=== PATIENT | female | born 1965 | race Caucasian/White ===

== ENCOUNTER 2016-06-23 11:02 | Inpatient (IN) | payer MEDICAID ==
[~2016-06-23] VITALS: Ht 162.6 cm; Wt 68.0 kg
[2016-06-23] MEDS ORDERED: SODIUM CHLORIDE 0.9% 1,000 ML IVB ONE (11:45)
[2016-06-23] MEDS ORDERED: PIPERACILLIN-TAZOB 3.375GM 100 ML IV ONE (11:45)
[2016-06-23 13:10] LABS: Basophils # (auto) 0.1 uL; Basophils % (auto) 0.7 % (0.0-2.0); Eosinophils # (auto) 0 uL; Eosinophils % (auto) 0.6 % (0.0-7.0); Hematocrit 36.7 % (36.0-46.0); Hemoglobin 12.2 g/dL (12.2-16.2); Lymphocytes # (auto) 0.9 uL; Lymphocytes % (auto) 11.2 % (10.0-50.0); Mean Corpuscular Hemoglobin 28.2 pg (28.0-32.0); Mean Corpuscular Hgb Conc. 33.3 g/dL (32.0-36.0); Mean Corpuscular Volume 84.8 fL (80.0-100.0); Mean Platelet Volume 8.6 fL (7.4-10.4); Monocytes # (auto) 0.3 uL; Neutrophils # (auto) 6.9 uL; Neutrophils % (auto) 83.5 % (37.0-80.0); Platelet Count (auto) 226 10^3/uL (140-450); Red Cell Distribution Width 14.8 % (11.6-16.0); White Blood Cell 8.2 10^3/uL (4.4-10.8)
[2016-06-23] MEDS ORDERED: ONDANSETRON HCL 4 MG/2 ML VIAL IV ONE (13:15)
[2016-06-23 13:34] LABS: INR 1.03 (0.9-1.15); Partial Thromboplastin Time 30.3 sec (22.64-33.71); Prothrombin Time 10.6 sec (9.37-12.3)
[2016-06-23 14:00] LABS: Albumin 4.1 g/dL (3.4-5.0); Alkaline Phosphatase 98 U/L (45-117); Anion Gap 14 (5-15); Aspartate Aminotransferase 104 U/L (15-37); BUN/Creatinine Ratio 26.4; Bilirubin, Total 0.5 mg/dL (0.2-1.0); Blood Urea Nitrogen 14 mg/dL (7-18); Calcium 8.8 mg/dL (8.5-10.1); Carbon Dioxide 27 mmol/L (21-32); Chloride 103 mmol/L (98-107); GFR African American 156 mL/min; GFR Non-African American 129 mL/min; Glucose 109 mg/dL (74-106); Potassium 3.9 mmol/L (3.5-5.1); Sodium 144 mmol/L (136-145)
[2016-06-23 14:11] LABS: Urine Bilirubin Negative (Negative); Urine Blood Negative /uL (Negative); Urine Color Yellow (Yellow); Urine Glucose Normal (Normal); Urine Ketone TRACE (Negative); Urine Nitrite Negative (Negative); Urine RBC 1 /hpf (0 - 4); Urine Urobilinogen Normal (Negative); Urine pH 5.5 (5.0-8.0)
[2016-06-23] MEDS ORDERED: ONDANSETRON HCL 4 MG/2 ML VIAL IV PRN (15:30)
[2016-06-23] MEDS ORDERED: MORPHINE SULF INJ 2 MG/ML SYRINGE 1ML IV PRN ×2 (15:30)
[2016-06-23] MEDS ORDERED: NITROGLYCERIN 0.4 MG SL TAB SL PRN (15:30)
[2016-06-23] MEDS: SODIUM CHLORIDE 0.9% 1,000 ML IV SCH (16:08)
[2016-06-23] MEDS: HYDROcodone-ACET 5/325MG TAB PO PRN (17:04)
[2016-06-23] MEDS ORDERED: ERGO1CAP6 PO (17:15)
[2016-06-23] MEDS ORDERED: CLON05T PO (17:15)
[2016-06-23] MEDS ORDERED: SUMA100T2 PO (17:15)
[2016-06-23] MEDS ORDERED: TIZA4CAP5 PO (17:15)
[2016-06-23] MEDS ORDERED: DIAZ2TAB PO (17:18)
[2016-06-23] MEDS ORDERED: NALT380I PO (17:18)
[2016-06-23] MEDS ORDERED: TIZA4CAP7 PO (17:18)
[2016-06-23] MEDS ORDERED: TRAM50TA2 PO (17:18)
[2016-06-23] MEDS ORDERED: MIRT30TA PO (17:19)
[2016-06-23] MEDS ORDERED: NOR5T PO (17:19)
[2016-06-23 20:20] VITALS: BP 136/75
[2016-06-23 22:00] VITALS: BP 136/75
[2016-06-24] VITALS (7 sets, daily range): BP systolic 104–135; BP diastolic 61–88
[2016-06-24] MEDS: SODIUM CHLORIDE 0.9% 1,000 ML IV SCH ×3 (02:58→23:26)
[2016-06-24 06:42] LABS: Basophils # (auto) 0 uL; Basophils % (auto) 0.2 % (0.0-2.0); Eosinophils # (auto) 0.1 uL; Eosinophils % (auto) 0.9 % (0.0-7.0); Hematocrit 32.7 % (36.0-46.0); Hemoglobin 11.2 g/dL (12.2-16.2); Lymphocytes # (auto) 2.2 uL; Lymphocytes % (auto) 27.8 % (10.0-50.0); Mean Corpuscular Hemoglobin 28.6 pg (28.0-32.0); Mean Corpuscular Hgb Conc. 34.3 g/dL (32.0-36.0); Mean Corpuscular Volume 83.4 fL (80.0-100.0); Mean Platelet Volume 8.5 fL (7.4-10.4); Monocytes # (auto) 0.5 uL; Monocytes % (auto) 5.8 % (0.0-12.0); Neutrophils # (auto) 5.2 uL; Neutrophils % (auto) 65.3 % (37.0-80.0); Platelet Count (auto) 237 10^3/uL (140-450); Red Cell Distribution Width 14.9 % (11.6-16.0); White Blood Cell 7.9 10^3/uL (4.4-10.8)
[2016-06-24 07:29] LABS: Albumin 3.2 g/dL (3.4-5.0); Bilirubin, Total 0.4 mg/dL (0.2-1.0); Calcium 7.6 mg/dL (8.5-10.1); Total Protein 6.2 g/dL (6.4-8.2)
[2016-06-24 07:34] LABS: Potassium 2.7 mmol/L (3.5-5.1)
[2016-06-24] MEDS ORDERED: POTASSIUM CHL 20 Meq TABLET PO ONE (08:30)
[2016-06-24] MEDS ORDERED: POTASSIUM CHL 20MEQ/100ML 100 ML IV ONE (08:30)
[2016-06-24] MEDS ORDERED: cefTRIAXone 1GM/50ML D5W 50 ML IV SCH ×2 (09:00→12:00)
[2016-06-24] MEDS ORDERED: PANTOPRAZOLE SODIUM 40 MG/10 ML VIAL IV SCH (10:00)
[2016-06-24] MEDS: HYDROcodone-ACET 5/325MG TAB PO PRN (14:52)
[2016-06-24] MEDS: TOLTERODINE TARTRATE 1 MG TAB PO SCH (22:23)
[2016-06-25 05:30] VITALS: BP 133/84
[2016-06-25 06:05] LABS: BUN/Creatinine Ratio 16.1; Calcium 8.1 mg/dL (8.5-10.1); Magnesium 2.1 mg/dL (1.6-2.6); Potassium 3.5 mmol/L (3.5-5.1)
[2016-06-25 08:00] VITALS: BP 148/74
[2016-06-25] MEDS: HYDROcodone-ACET 5/325MG TAB PO PRN (08:16)
[2016-06-25 09:00] VITALS: BP 148/74
[2016-06-25] MEDS: TOLTERODINE TARTRATE 1 MG TAB PO SCH (09:32)
[2016-06-25] MEDS ORDERED: PANTOPRAZOLE 40 MG TAB PO SCH (10:00)
[2016-06-25 10:37] VITALS: BP 148/74
== END 2016-06-25 11:38 | disposition home or self-care (01) | DRG 812 ==
LOC: EDBD 11:02 → ER 11:03 → TELE 11:04 → TELE-CENTR 20:37
PROVIDERS: ADMIT Internal Medicine; ATTEND Internal Medicine
DX: T40.601A Poisoning by unspecified narcotics, accidental (unintentional), initial encounter (principal); G92 Toxic encephalopathy; T68.XXXA Hypothermia, initial encounter; G35 Multiple sclerosis; J98.11 Atelectasis; E66.9 Obesity, unspecified; G89.29 Other chronic pain; E87.6 Hypokalemia; Z82.49 Family history of ischemic heart disease and other diseases of the circulatory system; Y92.091 Bathroom in other non-institutional residence as the place of occurrence of the external cause; Z90.710 Acquired absence of both cervix and uterus; Z68.25 Body mass index [BMI] 25.0-25.9, adult
CPT/HCPCS: 36415; 51702; 70450; 71010; 80048; 80053; 80320; 81001; 83605; 83735; 84132; 84484; 85025; 85610; 85730; 87040; 96361; 96365; 96375; 97001; C9113; G0434; J2405; J2543; J3480

== ENCOUNTER 2022-01-04 20:59 | Inpatient (IN) | payer MEDICAID, OTHER ==
[~2022-01-04] VITALS: Ht 160 cm; Wt 86.5 kg
[~2022-01-04 20:59] MED LIST: CLON0.5T3 PO; ERGO1CAP6 PO; HYDR-4833 PO; MIRT-66 PO; NALT380I PO; SUMA100T2 PO; TIZA4CAP PO; TIZA4CAP7 PO; TRAM50TA2 PO
[2022-01-04 23:22] LABS: Basophils # (auto) 0.1 10 ^3/uL (0-0.2); Basophils % (auto) 0.5 % (0.0-2.0); Eosinophils # (auto) 0 10 ^3/uL (0-0.8); Hematocrit 35.8 % (36.0-46.0); Hemoglobin 12.1 g/dL (12.2-16.2); Lymphocytes # (auto) 0.8 10 ^3/uL (0.4-5.4); Mean Corpuscular Hemoglobin 29.4 pg (28.0-32.0); Mean Corpuscular Hgb Conc. 33.6 g/dL (32.0-36.0); Mean Corpuscular Volume 87.4 fL (80.0-100.0); Monocytes # (auto) 0.9 10 ^3/uL (0-1.3); Monocytes % (auto) 8.4 % (0.0-12.0); Neutrophils # (auto) 9.5 10 ^3/uL (1.6-8.6); Neutrophils % (auto) 84.1 % (37.0-80.0); Red Cell Distribution Width 13.8 % (11.8-14.3); White Blood Cell 11.3 10^3/uL (4.4-10.8)
[2022-01-04 23:40] LABS: Albumin 3.1 g/dL (3.4-5.0); Calcium 7.8 mg/dL (8.5-10.1)
[2022-01-04 23:46] LABS: BUN/Creatinine Ratio 17.2
[2022-01-05] MEDS ORDERED: SODIUM CHLORIDE 0.9% 1,000 ML IV ONE (04:30)
[2022-01-05] MEDS ORDERED: POTASSIUM CHL 20MEQ/100ML 100 ML IV ONE (04:30)
[2022-01-05] MEDS ORDERED: DexAMETHasone SOD PHOS 10MG/1ML VIAL INJ IV ONE (04:30)
[2022-01-05] MEDS ORDERED: DOCUSATE SOD 100 MG CAP PO PRN (05:15)
[2022-01-05] MEDS ORDERED: ACETAMINOPHEN 325 MG TAB PO PRN (05:15)
[2022-01-05] MEDS ORDERED: ONDANSETRON HCL 4 MG/2 ML VIAL IV PRN (05:15)
[2022-01-05] MEDS ORDERED: NITROGLYCERIN 0.4 MG SL TAB SL PRN (05:45)
[2022-01-05] MEDS ORDERED: MORPHINE SULFATE INJ 2 MG/ml SYRG IV PRN (05:45)
[2022-01-05 06:23] LABS: Basophils # (auto) 0 10 ^3/uL (0-0.2); Basophils % (auto) 0.2 % (0.0-2.0); Eosinophils # (auto) 0 10 ^3/uL (0-0.8); Hematocrit 32.7 % (36.0-46.0); Hemoglobin 11.2 g/dL (12.2-16.2); Lymphocytes # (auto) 0.7 10 ^3/uL (0.4-5.4); Lymphocytes % (auto) 5.2 % (10.0-50.0); Mean Corpuscular Hemoglobin 29.8 pg (28.0-32.0); Mean Corpuscular Hgb Conc. 34.3 g/dL (32.0-36.0); Mean Corpuscular Volume 86.7 fL (80.0-100.0); Monocytes # (auto) 1.1 10 ^3/uL (0-1.3); Monocytes % (auto) 8.8 % (0.0-12.0); Neutrophils # (auto) 10.9 10 ^3/uL (1.6-8.6); Neutrophils % (auto) 85.8 % (37.0-80.0); Red Blood Cells 3.77 10^6/uL (4.0-5.20); Red Cell Distribution Width 14.1 % (11.8-14.3); White Blood Cell 12.7 10^3/uL (4.4-10.8)
[2022-01-05 06:41] LABS: Albumin 2.8 g/dL (3.4-5.0)
[2022-01-05] MEDS: SODIUM CHLORIDE 0.9% 1,000 ML IV SCH ×2 (06:45→22:01)
[2022-01-05 06:55] LABS: Urine Bacteria MANY /hpf (None Seen); Urine Blood 1+ /uL (Negative); Urine Specific Gravity 1.015 (1.001-1.035); Urine WBC 581 /hpf (0 - 5); Urine WBC Clumps PRESENT /hpf (None Seen)
[2022-01-05 07:35] LABS: Bilirubin, Total 1.1 mg/dL (0.2-1.0); Total Protein 6.2 g/dL (6.4-8.2)
[2022-01-05 07:37] LABS: Potassium 2.9 mmol/L (3.5-5.1)
[2022-01-05] MEDS: DexAMETHasone SOD PHOS 10MG/1ML VIAL INJ IV SCH ×2 (10:15→22:02)
[2022-01-05] MEDS: FAMOTIDINE (10MG/ML) 2ML VL IV SCH (10:15)
[2022-01-05] MEDS ORDERED: POTASSIUM CHL 20 Meq TABLET PO ONE ×2 (13:15→18:15)
[2022-01-05] MEDS: MAGNESIUM SULFATE 1GM/100ML 100 ML IV SCH ×2 (13:37→14:34)
[2022-01-05 16:40] VITALS: BP 109/60
[2022-01-05 17:37] LABS: Calcium 8.4 mg/dL (8.5-10.1); Potassium 3.7 mmol/L (3.5-5.1)
[2022-01-05 17:40] LABS: BUN/Creatinine Ratio 21.9
[2022-01-05] MEDS ORDERED: ROPI1TAB4 PO (18:11)
[2022-01-05] MEDS ORDERED: GABA300C10 PO (18:11)
[2022-01-05] MEDS ORDERED: TIZA4TAB7 PO (18:11)
[2022-01-05] MEDS ORDERED: BACL20TA PO (18:11)
[2022-01-05] MEDS: PIPERACILLIN-TAZOB 3.375GM 100 ML IV SCH (18:41)
[2022-01-05] MEDS: HYDROcodone-ACET 5/325MG TAB PO PRN (18:42)
[2022-01-05 20:00] VITALS: BP 125/61
[2022-01-05 22:00] VITALS: BP 125/61
[2022-01-05] MEDS: BACLOFEN 10 MG TAB PO SCH (22:02)
[2022-01-05] MEDS ORDERED: LORazepam 2MG/ML-1ML VIAL IV PRN (23:15)
[2022-01-06] MEDS: TEMAZEPAM 15 MG CAP PO PRN ×2 (01:11→20:48)
[2022-01-06] MEDS: PIPERACILLIN-TAZOB 3.375GM 100 ML IV SCH ×5 (01:29→23:15)
[2022-01-06 05:00] VITALS: BP 118/59
[2022-01-06] MEDS: BACLOFEN 10 MG TAB PO SCH ×3 (05:28→20:48)
[2022-01-06 06:20] LABS: Basophils # (auto) 0 10 ^3/uL (0-0.2); Basophils % (auto) 0.1 % (0.0-2.0); Eosinophils # (auto) 0 10 ^3/uL (0-0.8); Hematocrit 36.6 % (36.0-46.0); Hemoglobin 12.1 g/dL (12.2-16.2); Lymphocytes # (auto) 0.8 10 ^3/uL (0.4-5.4); Lymphocytes % (auto) 4.1 % (10.0-50.0); Mean Corpuscular Hemoglobin 29.1 pg (28.0-32.0); Mean Corpuscular Hgb Conc. 33.1 g/dL (32.0-36.0); Monocytes # (auto) 0.6 10 ^3/uL (0-1.3); Monocytes % (auto) 3.2 % (0.0-12.0); Neutrophils # (auto) 16.9 10 ^3/uL (1.6-8.6); Neutrophils % (auto) 92.6 % (37.0-80.0); Red Blood Cells 4.16 10^6/uL (4.0-5.20); Red Cell Distribution Width 14.1 % (11.8-14.3); White Blood Cell 18.2 10^3/uL (4.4-10.8)
[2022-01-06 06:38] LABS: Potassium 4.9 mmol/L (3.5-5.1)
[2022-01-06 06:44] LABS: Albumin 2.9 g/dL (3.4-5.0); BUN/Creatinine Ratio 30.2; Bilirubin, Total 0.8 mg/dL (0.2-1.0); Calcium 8.7 mg/dL (8.5-10.1); Magnesium 2.8 mg/dL (1.6-2.6); Total Protein 6.3 g/dL (6.4-8.2)
[2022-01-06 08:00] VITALS: BP 130/82
[2022-01-06 08:48] VITALS: BP 130/82
[2022-01-06] MEDS ORDERED: methylPREDNISolone SOD SUCC 40 MG/ML VL IV SCH (10:00)
[2022-01-06] MEDS: FAMOTIDINE (10MG/ML) 2ML VL IV SCH (10:55)
[2022-01-06] MEDS: GABAPENTIN 300 MG CAP PO SCH (10:56)
[2022-01-06] MEDS ORDERED: diazePAM 5 MG TAB PO ONE (11:15)
[2022-01-06] MEDS ORDERED: GADOTERATE MEG 10 MMOL/20ml INJ (0.5MMOL/ml) IV ONE (11:44)
[2022-01-06 13:00] VITALS: BP 129/61
[2022-01-06] MEDS: SODIUM CHLORIDE 0.9% 1,000 ML IV SCH (14:35)
[2022-01-06 17:00] VITALS: BP 110/63
[2022-01-06 22:00] VITALS: BP 99/54
[2022-01-07 05:00] VITALS: BP 106/62
[2022-01-07] MEDS: BACLOFEN 10 MG TAB PO SCH ×2 (05:07→14:11)
[2022-01-07] MEDS: PIPERACILLIN-TAZOB 3.375GM 100 ML IV SCH ×2 (05:07→12:42)
[2022-01-07] MEDS: GABAPENTIN 300 MG CAP PO SCH (10:32)
[2022-01-07] MEDS: HYDROcodone-ACET 5/325MG TAB PO PRN (10:32)
[2022-01-07] MEDS: FAMOTIDINE (10MG/ML) 2ML VL IV SCH (10:33)
[2022-01-07 13:00] VITALS: BP 114/65
[2022-01-07] MEDS ORDERED: methylPREDNISolone SOD SUCC 1,000 MG in SODIUM CHL 0.9% 250 ML IV SCH (13:00)
[2022-01-07] MEDS ORDERED: CIPR500T4 PO (16:32)
[2022-01-07 16:47] VITALS: BP 115/64
[2022-01-07 17:15] VITALS: BP 115/64
== END 2022-01-07 19:05 | disposition home or self-care (01) | DRG 59 ==
LOC: ER 20:59 → TELE 01-05 05:38 → TELE-WESTW 01-05 16:10
PROVIDERS: ADMIT Nurse Practitioner Family; ATTEND Hospitalist
DX: G35 Multiple sclerosis (principal); E46 Unspecified protein-calorie malnutrition; N39.0 Urinary tract infection, site not specified; E87.6 Hypokalemia; E88.09 Other disorders of plasma-protein metabolism, not elsewhere classified; E86.0 Dehydration; F17.200 Nicotine dependence, unspecified, uncomplicated; Z20.822 Contact with and (suspected) exposure to COVID-19; R73.9 Hyperglycemia, unspecified; D72.829 Elevated white blood cell count, unspecified; Z82.3 Family history of stroke; Z90.710 Acquired absence of both cervix and uterus; Z68.33 Body mass index [BMI] 33.0-33.9, adult
CPT/HCPCS: 36415; 70553; 71046; 72142; 80048; 80053; 81001; 83735; 83880; 84484; 85025; 87426; 93005; 96365; 96366; 96367; 96375; 97163; G0378; J1100; J2405; J2543; J3480; J3490

== ENCOUNTER 2023-03-16 10:38 | Inpatient (IN) | payer OTHER ==
[~2023-03-16] VITALS: Ht 170.2 cm; Wt 71.7 kg
[~2023-03-16 10:38] MED LIST changes: +BACL20TA PO; +CIPR500T4 PO; -ERGO1CAP6 PO; +GABA-1250 PO; -MIRT-66 PO; +MIRT-94 PO; +ROPI1TAB4 PO; +TIZA-142 PO; -TIZA4CAP PO; -TIZA4CAP7 PO
[2023-03-16 12:12] VITALS: PULSE 82; RESP 14; O2SAT 97
[2023-03-16 12:29] LABS: Basophils # (auto) 0 10 ^3/uL (0-0.2); Basophils % (auto) 0.3 % (0.0-2.0); Eosinophils # (auto) 0 10 ^3/uL (0-0.8); Eosinophils % (auto) 0.2 % (0.0-7.0); Hematocrit 44.9 % (36.0-46.0); Hemoglobin 14.6 g/dL (12.2-16.2); Lymphocytes # (auto) 1.2 10 ^3/uL (0.4-5.4); Lymphocytes % (auto) 9.3 % (10.0-50.0); Mean Corpuscular Hemoglobin 29.7 pg (28.0-32.0); Mean Corpuscular Hgb Conc. 32.6 g/dL (32.0-36.0); Mean Corpuscular Volume 90.9 fL (80.0-100.0); Monocytes # (auto) 0.7 10 ^3/uL (0-1.3); Neutrophils # (auto) 11.3 10 ^3/uL (1.6-8.6); Neutrophils % (auto) 85.2 % (37.0-80.0); Red Blood Cells 4.93 10^6/uL (4.0-5.20); Red Cell Distribution Width 14.4 % (11.8-14.3); White Blood Cell 13.3 10^3/uL (4.4-10.8)
[2023-03-16 12:46] LABS: Alanine Aminotransferase 14 U/L (7-40); Alkaline Phosphatase 82 U/L (46-116); Anion Gap 7 (5-15); BUN/Creatinine Ratio 7.4 (10.0-20.0); Blood Alcohol 3.3 mg/dL (<10); Blood Urea Nitrogen 8 mg/dL (9-23); Calcium 9.5 mg/dL (8.7-10.4); Carbon Dioxide 25 mmol/L (20-30); Chloride 107 mmol/L (98-107); Glucose 92 mg/dL (74-106); Magnesium 2.3 mg/dL (1.6-2.6); Potassium 3.7 mmol/L (3.5-5.1); Sodium 139 mmol/L (136-145)
[2023-03-16 12:47] LABS: Albumin 4.6 g/dL (3.2-4.8); Aspartate Aminotransferase 24 U/L (13-40)
[2023-03-16 12:48] LABS: Bilirubin, Total 0.8 mg/dL (0.2-1.0)
[2023-03-16 14:50] LABS: Rapid Influenza A Negative (Negative); Rapid Influenza B Negative (Negative)
[2023-03-16 14:52] LABS: COVID19 ANTIGEN SOFIA FIA NEGATIVE (NEGATIVE)
[2023-03-16 14:59] LABS: Urine Bacteria FEW /hpf (None Seen); Urine Blood Negative /uL (Negative); Urine Clarity Clear (Clear); Urine Color Colorless (Yellow); Urine Protein, UAD Negative (Negative); Urine Specific Gravity 1.006 (1.001-1.035); Urine Urobilinogen Normal (Negative); Urine WBC 24 /hpf (0 - 5); Urine pH 7.5 (5.0-8.0)
[2023-03-16] MEDS ORDERED: cefTRIAXone 1GM/50ML D5W 50 ML IV ONE (15:30)
[2023-03-16 19:36] LABS: Amphetamine Screen, Urine Neg (NEGATIVE); Barbiturate Scree,Urine Neg (NEGATIVE); Benzodiazephine Screen, Urine Neg (NEGATIVE); Cannabinoid Screen, Urine Pos (NEGATIVE); Cocaine Screen, Urine Neg (NEGATIVE); Opiate Scree,Urine Neg (NEGATIVE); Phencyclidine Screen, Urine Neg (NEGATIVE)
[2023-03-16 19:45] VITALS: RESP 12; O2SAT 100
[2023-03-16 19:51] LABS: Acetaminophen < 2.0 UG/ML (10.0-20.0)
[2023-03-16 19:54] LABS: Salicylate < 3.0 mg/dL (2.8-20.0)
[2023-03-16] MEDS ORDERED: ACETAMINOPHEN 325 MG TAB PO PRN (20:00)
[2023-03-16] MEDS ORDERED: NITROGLYCERIN 0.4 MG SL TAB SL PRN (20:00)
[2023-03-16] MEDS ORDERED: HYDROcodone-ACET 5/325MG TAB PO PRN (20:00)
[2023-03-16] MEDS ORDERED: MORPHINE SULFATE INJ 2 MG/ml SYRG IV PRN (20:00)
[2023-03-16] MEDS: SODIUM CHLORIDE 0.9% 1,000 ML IV SCH (21:12)
[2023-03-16] MEDS ORDERED: NALOXONE HCL 0.4 MG/ML VIAL IV ONE (21:30)
[2023-03-16] MEDS: hydrALAZINE HCL 20 MG/ML VL IV PRN (22:40)
[2023-03-17] MEDS: hydrALAZINE HCL 20 MG/ML VL IV PRN ×2 (03:24→23:56)
[2023-03-17 06:21] LABS: Basophils # (auto) 0.1 10 ^3/uL (0-0.2); Basophils % (auto) 0.6 % (0.0-2.0); Eosinophils # (auto) 0 10 ^3/uL (0-0.8); Hematocrit 43.6 % (36.0-46.0); Hemoglobin 14.8 g/dL (12.2-16.2); Mean Corpuscular Hemoglobin 29.9 pg (28.0-32.0); Mean Corpuscular Hgb Conc. 33.9 g/dL (32.0-36.0); Mean Corpuscular Volume 88.3 fL (80.0-100.0); Monocytes # (auto) 0.4 10 ^3/uL (0-1.3); Monocytes % (auto) 4.4 % (0.0-12.0); Neutrophils # (auto) 8.3 10 ^3/uL (1.6-8.6); Nucleated Red Blood Cells % 0.1 %; Red Blood Cells 4.94 10^6/uL (4.0-5.20); Red Cell Distribution Width 14.1 % (11.8-14.3); White Blood Cell 9.8 10^3/uL (4.4-10.8)
[2023-03-17 06:38] LABS: Alanine Aminotransferase 14 U/L (7-40); Albumin 4.5 g/dL (3.2-4.8); Alkaline Phosphatase 82 U/L (46-116); Anion Gap 12 (5-15); Aspartate Aminotransferase 25 U/L (13-40); BUN/Creatinine Ratio 15.5 (10.0-20.0); Blood Urea Nitrogen 11 mg/dL (9-23); Calcium 9.5 mg/dL (8.5-10.1); Carbon Dioxide 20 mmol/L (20-30); Chloride 108 mmol/L (98-107); Glucose 95 mg/dL (74-106); Potassium 3.5 mmol/L (3.5-5.1); Sodium 140 mmol/L (136-145)
[2023-03-17 06:39] LABS: Bilirubin, Total 0.6 mg/dL (0.2-1.0); Total Protein 6.8 g/dL (5.7-8.2)
[2023-03-17 08:00] VITALS: PULSE 88; RESP 12; O2SAT 100
[2023-03-17] MEDS: ENOXAPARIN SOD 30 MG/0.3 ML SYRINGE SC SCH (10:00)
[2023-03-17] MEDS: SODIUM CHLORIDE 0.9% 1,000 ML IV SCH (14:44)
[2023-03-17] MEDS ORDERED: methylPREDNISolone SOD SUCC 500 MG in SODIUM CHL 0.9% 100 ML IV ONE (15:15)
[2023-03-17] MEDS ORDERED: LORazepam 2MG/ML-1ML VIAL IV PRN (19:15)
[2023-03-17 20:15] VITALS: PULSE 97; RESP 16; O2SAT 97
[2023-03-18] VITALS (10 sets, daily range): BP systolic 141–166; BP diastolic 64–88; PULSE 102–120; RESP 18–20; TEMP 97.5–98.4; O2SAT 91–96
[2023-03-18] MEDS: SODIUM CHLORIDE 0.9% 1,000 ML IV SCH ×2 (05:20→22:00)
[2023-03-18] MEDS: hydrALAZINE HCL 20 MG/ML VL IV PRN ×2 (05:32→22:37)
[2023-03-18 06:54] LABS: Basophils # (auto) 0 10 ^3/uL (0-0.2); Basophils % (auto) 0.1 % (0.0-2.0); Eosinophils # (auto) 0 10 ^3/uL (0-0.8); Hematocrit 44.4 % (36.0-46.0); Lymphocytes # (auto) 0.8 10 ^3/uL (0.4-5.4); Lymphocytes % (auto) 7.2 % (10.0-50.0); Mean Corpuscular Hgb Conc. 33.7 g/dL (32.0-36.0); Mean Corpuscular Volume 89.2 fL (80.0-100.0); Monocytes # (auto) 0 10 ^3/uL (0-1.3); Monocytes % (auto) 0.4 % (0.0-12.0); Neutrophils # (auto) 9.9 10 ^3/uL (1.6-8.6); Neutrophils % (auto) 92.3 % (37.0-80.0); Red Blood Cells 4.98 10^6/uL (4.0-5.20); Red Cell Distribution Width 13.9 % (11.8-14.3); White Blood Cell 10.7 10^3/uL (4.4-10.8)
[2023-03-18 07:11] LABS: Alanine Aminotransferase 18 U/L (7-40); Albumin 4.6 g/dL (3.2-4.8); Alkaline Phosphatase 80 U/L (46-116); Anion Gap 15 (5-15); Aspartate Aminotransferase 23 U/L (13-40); BUN/Creatinine Ratio 20.6 (10.0-20.0); Blood Urea Nitrogen 14 mg/dL (9-23); Calcium 9.6 mg/dL (8.5-10.1); Carbon Dioxide 17 mmol/L (20-30); Chloride 109 mmol/L (98-107); Glucose 132 mg/dL (74-106); Potassium 3.3 mmol/L (3.5-5.1); Sodium 141 mmol/L (136-145)
[2023-03-18 07:12] LABS: Bilirubin, Total 0.7 mg/dL (0.2-1.0); Total Protein 6.9 g/dL (5.7-8.2)
[2023-03-18] MEDS ORDERED: POTASSIUM CHL 10 Meq TABLET PO ONE (08:30)
[2023-03-18] MEDS ORDERED: cefTRIAXone 1GM/50ML D5W 50 ML IV SCH (09:00)
[2023-03-18] MEDS: ENOXAPARIN SOD 30 MG/0.3 ML SYRINGE SC SCH (09:14)
[2023-03-18] MEDS ORDERED: GADOTERATE MEG 10 MMOL/20ml INJ (0.5MMOL/ml) IV ONE (11:22)
[2023-03-18] MEDS: PIPERACILLIN-TAZOB 3.375GM 100 ML IV SCH (22:24)
[2023-03-19] MEDS: PIPERACILLIN-TAZOB 3.375GM 100 ML IV SCH ×2 (04:05→09:44)
[2023-03-19] MEDS: SODIUM CHLORIDE 0.9% 1,000 ML IV SCH (04:31)
[2023-03-19 04:55] VITALS: BP 139/94; PULSE 122; RESP 18; TEMP 98.4; O2SAT 96
[2023-03-19 05:13] LABS: Basophils # (auto) 0 10 ^3/uL (0-0.2); Basophils % (auto) 0.1 % (0.0-2.0); Eosinophils # (auto) 0 10 ^3/uL (0-0.8); Hematocrit 41.6 % (36.0-46.0); Hemoglobin 13.9 g/dL (12.2-16.2); Lymphocytes # (auto) 1.1 10 ^3/uL (0.4-5.4); Lymphocytes % (auto) 9.1 % (10.0-50.0); Mean Corpuscular Hemoglobin 29.8 pg (28.0-32.0); Mean Corpuscular Hgb Conc. 33.3 g/dL (32.0-36.0); Mean Corpuscular Volume 89.5 fL (80.0-100.0); Monocytes # (auto) 0.8 10 ^3/uL (0-1.3); Monocytes % (auto) 6.8 % (0.0-12.0); Neutrophils # (auto) 10.3 10 ^3/uL (1.6-8.6); Red Blood Cells 4.64 10^6/uL (4.0-5.20); Red Cell Distribution Width 13.9 % (11.8-14.3); White Blood Cell 12.2 10^3/uL (4.4-10.8)
[2023-03-19 05:25] LABS: Albumin 4.4 g/dL (3.2-4.8); Alkaline Phosphatase 73 U/L (46-116); Anion Gap 10 (5-15); Aspartate Aminotransferase 23 U/L (13-40); BUN/Creatinine Ratio 24.3 (10.0-20.0); Bilirubin, Total 1.1 mg/dL (0.2-1.0); Blood Urea Nitrogen 18 mg/dL (9-23); Calcium 8.9 mg/dL (8.7-10.4); Carbon Dioxide 20 mmol/L (20-30); Chloride 111 mmol/L (98-107); Glucose 111 mg/dL (74-106); Potassium 3.2 mmol/L (3.5-5.1); Sodium 141 mmol/L (136-145); Total Protein 6.8 g/dL (5.7-8.2)
[2023-03-19 05:37] LABS: Alanine Aminotransferase 16 U/L (7-40)
[2023-03-19] MEDS ORDERED: POTASSIUM CHL 20 Meq TABLET PO ONE (07:00)
[2023-03-19 08:00] VITALS: PULSE 110; PULSE 117; RESP 16; O2SAT 92
[2023-03-19 08:50] VITALS: BP 142/75; PULSE 114; RESP 19; TEMP 98; O2SAT 96
[2023-03-19] MEDS: ENOXAPARIN SOD 30 MG/0.3 ML SYRINGE SC SCH (09:43)
[2023-03-19 10:51] VITALS: BP 166/88; TEMP 36.7
== END 2023-03-19 11:43 | disposition home or self-care (01) | DRG 71 ==
LOC: EDBD 10:38 → ER 10:38 → TELE 20:05 → TELE-WESTW 03-17 23:56 → OBSVTOIN 03-18 09:54
PROVIDERS: ADMIT Internal Medicine; ATTEND Student in an Organized Health Care Education/Training Program
DX: G93.41 Metabolic encephalopathy (principal); N39.0 Urinary tract infection, site not specified; G35 Multiple sclerosis; Z20.822 Contact with and (suspected) exposure to COVID-19; G96.9 Disorder of central nervous system, unspecified; F17.210 Nicotine dependence, cigarettes, uncomplicated; Z82.3 Family history of stroke; Z86.73 Personal history of transient ischemic attack (TIA), and cerebral infarction without residual deficits; Z90.710 Acquired absence of both cervix and uterus
CPT/HCPCS: 36415; 70450; 70551; 71045; 80053; 80307; 80320; 80329; 81001; 82962; 83605; 83735; 85025; 87040; 87426; 87804; 93005; 97110; 97116; 97163; 97530; G0378; J2543

== ENCOUNTER 2024-08-12 11:34 | Emergency (ER) | payer OTHER ==
[~2024-08-12] VITALS: Ht 160 cm; Wt 75.9 kg
[~2024-08-12 11:34] MED LIST changes: -BACL20TA PO; -CIPR500T4 PO; -ROPI1TAB4 PO; +ROPI1TAB78 PO; -TIZA-142 PO; -TRAM50TA2 PO
--- NOTE | 2024-08-12 12:21 | ED.PDOC ---
History of Present Illness HPI Comments 58-year-old female with PMHx MS presents with a chief complaint of generalized weakness and neck pain x "months". Patient reports that she has not had MS treatment since February 2024 due to insurance issues. Patient mentions that she has now not been able to walk at home due to weakness in her legs and cannot hold her head up anymore. Patient reports that her C4 and C5 are dissolving, which is associated with chronic neck pain. She denies any fever, difficulty breathing, difficulty swallowing, vision changes or other symptoms. No other symptoms or modifying factors present at this time. Chief Complaint: General Weakness Time Seen by MD: 12:05 Primary Care Provider: UNKNOWN Reviewed Notes: Medications, Allergies Allergies: Coded Allergies: NO KNOWN ALLERGIES (Unverified , 03/19/16) Home Meds Active Scripts Prednisone (Prednisone) 10 Mg Tab, 1-6 MG PO DAILY for 12 Days, #39 TAB 6 tabs po daily x 3 days, then 4 tabs daily x 3 days, then 2 tabs daily x 3 days, then 1 tab daily x 3 days Prov:VAMSHI ELIZONDO MD 08/12/24 Reported Medications Gabapentin (Gabapentin) 300 Mg Cap, 300 MG PO DAILY 01/05/22 Ropinirole Hydrochloride (Ropinirole Hcl) 1 Mg Tab, 12 MG PO QPM 01/05/22 Hydrocodone-Acetaminophen ([place] 5/325MG) 1 Tab Tb, 1 TAB PO TID, #90 TAB 06/23/16 Mirtazapine (REMERON) 30 Mg Tab, 45 MG PO HS, TAB 06/23/16 Naltrexone (Vivitrol) 380 Mg Inj, 3 MG PO DAILY, INJ 06/23/16 Sumatriptan Succinate (Imitrex) 100 Mg Tab, 100 MG PO DAILY, TAB 06/23/16 Clonazepam (KlonoPIN TABLET) 0.5 Mg Tb, 2 MG PO TID 06/23/16 Information Source: Patient Mode of Arrival: Wheelchair Severity: Moderate Timing: Months Duration: Since onset Prehospital treatment: None Past Medical History Past Medical History (Other): MS Surgical History: Hysterectomy [employer] History: No Pertinent [employer] History Family History Family History: No family hx of HTN Social History Smoker: Cigarettes Alcohol: Rarely Drugs: Marijuana Lives In: Home Constitutional: reports: weakness; denies: chills, diaphoresis, fatigue, fever, malaise, sweats, others EENTM: denies: blurred vision, double vision, ear bleeding, ear discharge, ear drainage, ear pain, ear ringing, eye pain, eye redness, hearing loss, mouth pain, mouth swelling, nasal discharge, nose bleeding, nose congestion, nose pain, photophobia, tearing, throat pain, throat swelling, voice changes, others Respiratory: denies: cough, hemoptysis, orthopnea, SOB at rest, shortness of breath, SOB with excertion, stridor, wheezing, others Cardiovascular: denies: chest pain, dizzy spells, diaphoresis, Dyspnea on exertion, edema, irregular heart beat, left arm pain, lightheadedness, palpitations, PND, syncope, others Gastrointestinal: denies: abdomen distended, abdominal pain, blood streaked bowels, constipated, diarrhea, dysphagia, difficulty swallowing, hematemesis, melena, nausea, poor appetite, poor fluid intake, rectal bleeding, rectal pain, vomiting, others Genitourinary: denies: abnormal vagina bleeding, burning, dyspareunia, dysuria, flank pain, frequency, hematuria, incontinence, pain, , vagina discharge, urgency, others Neurological: denies: dizziness, fainting, headache, left sided numbness, left sided weakness, numbness, paresthesia, pre-existing deficit, right sided numbness, right sided weakness, seizure, speech problems, tingling, tremors, weakness, others Musculoskeletal: reports: neck pain; denies: back pain, gout, joint pain, joint swelling, muscle pain, muscle stiffness, others Integumetry: denies: bruises, change in color, change in hair/nails, dryness, laceration, lesions, lumps, rash, wounds, others Allergic/Immunocompromised: denies: Difficulty Healing, Frequent Infections, Hives, Itching, others Hematologic/Lymphatic: denies: anemia, blood clots, easy bleeding, easy bruising, swollen glands, others Endocrine: denies: excessive hunger, excessive sweating, excessive thirst, excessive urination, flushing, intolerance to cold, intolerance to heat, unexplained weight gain, unexplained weight loss, others Psychiatric: denies: anxiety, bipolar disorder, depression, hopeless, panic disorder, schizophrenia, sleepless, suicidal, others All Other Systems: Reviewed and Negative Physical Exam General Appearance: No Apparent Distress, Obese HEENT: Other (Pupils and face symmetric. Moist mucous membranes.) Neck: Other (Mild midline and paraspinal tenderness to palpation. No crepitus or step-off.) Respiratory: Chest Non-Tender, No Accessory Muscle Use, No Respiratory Distress, Normal Breath Sounds Cardiovascular: No Edema, No JVD, Regular Rate/Rhythm Breast Exam: Deferred Gastrointestinal: Non Tender, Soft Genitalia: Deferred Pelvic: Deferred Rectal: Deferred Extremities: Normal inspection, Normal range of motion, Non-tender, No pedal edema Neurologic: Alert (Oriented x4), Normal Affect, Normal Mood, Other (5/5 motor strength bilateral upper extremities, 2/5 strength bilateral lower extremities. Light touch sensation grossly intact all extremities.) Cerebellar Function: NOT DONE Reflexes: NOT DONE Skin: Dry, Normal Color, Warm Lymphatic: NOT DONE Was a procedure done? Was a procedure done?: No Differential Dx Considerations may include: MS exacerbation, electrolyte imbalance, arrhythmia, DC, CVA, among others X-Ray, Labs, Meds, VS Vital Signs Date Time Temp Pulse Resp B/P (MAP) Pulse Ox O2 Delivery O2 Flow Rate FiO2 08/12/24 16:58 97.8 81 16 153/95 (114) 99 97.8 08/12/24 15:00 80 20 98 Room Air* 0 21 08/12/24 14:48 98.7 78 16 137/78 (97) 97 98.7 08/12/24 14:48 68 16 97 Room Air 08/12/24 11:41 98.4 86 18 156/85 (108) 98 98.4 Lab Test 08/12/24 13:40 08/12/24 13:12 Range/Units Troponin I High Sensitivity < 3 L < 3 L </=34 ng/L White Blood Count 7.4 4.4-10.8 10^3/uL Red Blood Count 4.81 4.0-5.20 10^6/uL Hemoglobin 14.0 12.2-16.2 g/dL Hematocrit 42.1 36.0-46.0 % Mean Corpuscular Volume 87.6 80.0-100.0 fL Mean Corpuscular Hemoglobin 29.2 28.0-32.0 pg Mean Corpuscular Hemoglobin Concent 33.4 32.0-36.0 g/dL Red Cell Distribution Width 14.4 H 11.8-14.3 % Platelet Count 238 140-450 10^3/uL Mean Platelet Volume 8.3 6.9-10.8 fL Neutrophils (%) (Auto) 75.5 37.0-80.0 % Lymphocytes (%) (Auto) 19.4 10.0-50.0 % Monocytes (%) (Auto) 3.9 0.0-12.0 % Eosinophils (%) (Auto) 0.8 0.0-7.0 % Basophils (%) (Auto) 0.4 0.0-2.0 % Neutrophils # (Auto) 5.6 1.6-8.6 10 ^3/uL Lymphocytes # (Auto) 1.4 0.4-5.4 10 ^3/uL Monocytes # (Auto) 0.3 0-1.3 10 ^3/uL Eosinophils # (Auto) 0.1 0-0.8 10 ^3/uL Basophils # (Auto) 0 0-0.2 10 ^3/uL Nucleated Red Blood Cells 0.0 % Sodium Level 141 136-145 mmol/L Potassium Level 3.7 3.5-5.1 mmol/L Chloride Level 103 98-107 mmol/L Carbon Dioxide Level 26 20-31 mmol/L Anion Gap 12 5-15 Blood Urea Nitrogen 14 9-23 mg/dL Creatinine 0.86 0.550-1.02 mg/dL Glomerular Filtration Rate Calc 78 >90 mL/min BUN/Creatinine Ratio 16.3 10.0-20.0 Serum Glucose 101 74-106 mg/dL Calcium Level 9.4 8.7-10.4 mg/dL Total Bilirubin 0.5 0.2-1.0 mg/dL Aspartate Amino Transferase (AST) 13 13-40 U/L Alanine Aminotransferase (ALT) 16 7-40 U/L Alkaline Phosphatase 76 46-116 U/L Creatine Kinase 54 34-145 U/L B-Type Natriuretic Peptide 19.63 0-100 pg/mL Total Protein 6.9 5.7-8.2 g/dL Albumin 4.7 3.2-4.8 g/dL Current Medications Medications (Trade) Dose Ordered Sig/[place] Route Start Time Stop Time Status Last Admin Acetaminophen/ Hydrocodone Bitart ([place] 5/325MG Tab) 1 tab ONCE ONCE PO 08/12/24 12:30 08/12/24 12:31 DC 08/12/24 15:10 Methylprednisolone Sodium Succinate (Solu Medrol) 125 mg ONCE ONCE IV 08/12/24 12:30 08/12/24 12:31 DC 08/12/24 15:10 X-Ray, Labs, Meds, VS Comment 58-year-old female with a history of MS presenting complaining of progressively worsening weakness since February of 2024, and stating she has not had treatment for MS since that time. Vitals remarkable for BP 156/85 Exam remarkable for 2/5 strength in both lower extremities and 2/5 strength with neck extension Rhythm strip independently interpreted by me: Sinus rhythm, rate 86, no ectopy. CBC, CMP, BNP and 2 serial troponins unremarkable Patient treated with the following in the ED: Solu-Medrol 125 mg IV On re-evaluation, patient is resting comfortably with stable vitals. Case discussed with Dr. Comer. Since symptoms are more chronic than acute, he advised discharge and will contact geriatric case manager to arrange for the patient to have urgent neurology follow-up. Prednisone taper was recommended, and will be prescribed. Patient was advised regarding workup findings, my impression, treatment plan and follow-up recommendations. She expressed understanding and agreed. Time of 1ST Reevaluation: 12:35 Reevaluation 1ST: Unchanged Patient Education/Counseling: Diagnosis, Treatment Family Education/Counseling: No Family Present Departure 1 Departure Time of Disposition: 16:39 Impression: Primary Impression: Multiple sclerosis exacerbation Disposition: 01 HOME / SELF CARE / HOMELESS Condition: Stable Additional Instructions: Your blood tests were unremarkable. A geriatric case manager will be contacting you to arrange for urgent neurology follow-up and home health care as needed. I have prescribed steroids to take at home. e-Prescriptions Prednisone (Prednisone) 10 Mg Tab 1-6 MG PO DAILY for 12 Days, #39 TAB 6 tabs po daily x 3 days, then 4 tabs daily x 3 days, then 2 tabs daily x 3 days, then 1 tab daily x 3 days Prov: VAMSHI ELIZONDO MD 08/12/24 Discharged With: Significant Other Critical Care Note Critical Care Time?: No Stability Stability form required: No Heart Score Heart Score: Heart Score Response (Comments) Value History N/A 0 EKG N/A 0 Age N/A 0 Risk Factors N/A 0 Troponin N/A 0 Total 0 I personally scribed for VAMSHI ELIZONDO MD ([email or web address]) on 08/12/24 at 12:21. Electronically submitted by Josep Canseco ([email or web address]). VAMSHI ELIZONDO MD August 12, 2024 12:21
[2024-08-12 13:28] LABS: Basophils # (auto) 0 10 ^3/uL (0-0.2); Basophils % (auto) 0.4 % (0.0-2.0); Eosinophils # (auto) 0.1 10 ^3/uL (0-0.8); Eosinophils % (auto) 0.8 % (0.0-7.0); Hematocrit 42.1 % (36.0-46.0); Lymphocytes # (auto) 1.4 10 ^3/uL (0.4-5.4); Lymphocytes % (auto) 19.4 % (10.0-50.0); Mean Corpuscular Hemoglobin 29.2 pg (28.0-32.0); Mean Corpuscular Hgb Conc. 33.4 g/dL (32.0-36.0); Mean Corpuscular Volume 87.6 fL (80.0-100.0); Monocytes # (auto) 0.3 10 ^3/uL (0-1.3); Monocytes % (auto) 3.9 % (0.0-12.0); Neutrophils # (auto) 5.6 10 ^3/uL (1.6-8.6); Neutrophils % (auto) 75.5 % (37.0-80.0); Platelet Count (auto) 238 10^3/uL (140-450); Red Blood Cells 4.81 10^6/uL (4.0-5.20); Red Cell Distribution Width 14.4 % (11.8-14.3); White Blood Cell 7.4 10^3/uL (4.4-10.8)
[2024-08-12 13:41] LABS: Alanine Aminotransferase 16 U/L (7-40); Albumin 4.7 g/dL (3.2-4.8); Alkaline Phosphatase 76 U/L (46-116); Anion Gap 12 (5-15); Aspartate Aminotransferase 13 U/L (13-40); BUN/Creatinine Ratio 16.3 (10.0-20.0); Blood Urea Nitrogen 14 mg/dL (9-23); Calcium 9.4 mg/dL (8.7-10.4); Carbon Dioxide 26 mmol/L (20-31); Chloride 103 mmol/L (98-107); Creatine Kinase IFCC 54 U/L (34-145); Glucose 101 mg/dL (74-106); Potassium 3.7 mmol/L (3.5-5.1); Sodium 141 mmol/L (136-145); Total Protein 6.9 g/dL (5.7-8.2)
[2024-08-12 13:42] LABS: Bilirubin, Total 0.5 mg/dL (0.2-1.0)
[2024-08-12 15:00] VITALS: PULSE 80; RESP 20; O2SAT 98
[2024-08-12] MEDS: methylPREDNISolone SOD SUCC 125 MG/2 ML VL IV ONE (15:10)
[2024-08-12] MEDS: HYDROcodone-ACET 5/325MG TAB PO ONE (15:10)
[2024-08-12] MEDS ORDERED: PRED10TA PO (16:45)
[2024-08-12 16:58] VITALS: BP 153/95; PULSE 81; RESP 16; TEMP 97.8; O2SAT 99
== END 2024-08-12 17:01 | disposition home or self-care (01) ==
LOC: ER 11:35
DX: G35 Multiple sclerosis (principal); F17.210 Nicotine dependence, cigarettes, uncomplicated; F12.90 Cannabis use, unspecified, uncomplicated; Z79.52 Long term (current) use of systemic steroids; Z90.710 Acquired absence of both cervix and uterus; Z79.899 Other long term (current) drug therapy
CPT/HCPCS: 36415; 80053; 82550; 83880; 84484; 85025; 96374; 99283; J2919